=== PATIENT | male | born 1955 | race Caucasian/White ===

== ENCOUNTER 2016-10-26 11:30 | Observation (INO) | payer OTHER ==
[2016-10-23 12:11] LABS: BASOPHILS 0.2 %; BASOPHILS ABSOLUTE 0.02 10/3/uL (0.0-0.16); EOSINOPHILS 1.3 %; EOSINOPHILS ABSOLUTE 0.13 10/3/uL (0.0-0.53); HEMATOCRIT 46.3 % (40.0-51.0); HEMOGLOBIN 15.2 g/dL (13.6-17.8); IMMATURE GRANULOCYTES 0.2 %; IMMATURE GRANULOCYTES ABSOLUTE 0.02 10/3/uL (0.0-0.11); LYMPHOCYTES 22.9 %; LYMPHOCYTES ABSOLUTE 2.23 10/3/uL (0.67-4.30); MEAN CORPUS HGB CONC 32.8 g/dL (32.0-36.0); MEAN CORPUSCULAR HEMOGLOB 29.8 pg (26.0-34.0); MEAN PLATELET VOLUME 11.2 fL (9.2-13.0); MONOCYTES 7.6 %; MONOCYTES ABSOLUTE 0.74 10/3/uL (0.21-1.20); NEUTROPHILS 67.8 %; NEUTROPHILS ABSOLUTE 6.59 10/3/uL (2.02-8.40); PLATELET COUNT 227 10/3/uL (150-400); RBC DISTRIBUTION WIDTH 12.7 % (12.0-16.0); WHITE BLOOD CELLS 9.7 10/3/uL (4.5-10.5)
[2016-10-23 12:12] LABS: MANUAL DIFF NO %; MEAN CORPUSCULAR VOLUME 90.8 fL (80-100)
[2016-10-23 12:28] LABS: ALBUMIN 4.1 G/DL (3.5-5.0); ALKALINE PHOSPHATASE 83 U/L (45-117); BUN (BLOOD UREA NITROGEN) 20 MG/DL (6-23); CALCIUM, SERUM 8.9 MG/DL (8.5-10.4); CHLORIDE, SERUM 102 MMOL/L (96-112); CO2 (CARBON DIOXIDE) 31 MMOL/L (24-34); CREATININE 1.13 MG/DL (0.70-1.30); GFR AFRICAN AMERICAN 81 ML/MIN (>=60); GFR NON AFRICAN AMERICAN 70 ML/MIN (>=60); GLUCOSE, SERUM 169 MG/DL (60-99); POTASSIUM, SERUM 4.3 MMOL/L (3.5-5.3); SGOT(AST) 38 U/L (5-40); SGPT(ALT) 79 U/L (5-65); SODIUM, SERUM 138 MMOL/L (135-148); TOTAL PROTEIN 7.6 G/DL (6.0-8.5)
[2016-10-23 12:29] LABS: A/G RATIO 1.2 (0.7-1.9); GLOBULIN 3.5 G/DL (2.5-4.1)
--- NOTE | ~2016-10-26 | PREOPHP ---
PreOp History and Physical [address] [place]. [address] NAME: JORGE LUIS ARMSTRONG : 55 STATUS : PRE [facility] [place] PAT#: [id number] AGE: 61 ADM/REG DATE : MR#: [id number] REPORT SERV DATE: 10/26/16 DICTATED BY: PHILL MENA III DATE: 10/18/16 REPORT STATUS : Draft TRANSCRIBED BY: MODL DATE: 10/18/16 HISTORY OF PRESENT ILLNESS: This 61-year-old male comes to the operating room for a laparoscopic cholecystectomy, possible laparotomy, for symptomatic cholelithiasis and cholecystitis. The patient complains of a 2-year history of intermittent episodes of abdominal pain. This pain occurs after eating. The pain is associated with nausea. The pain is described as in the right upper quadrant, epigastric areas. It occurs as 4 to 8/10. The patient has gallstones and was felt to have symptomatic cholelithiasis and cholecystitis. He comes to the operating room now for a laparoscopic cholecystectomy, possible laparotomy. MEDICATIONS: Lisinopril, metoprolol, nitroglycerin, simvastatin, and aspirin. PAST MEDICAL HISTORY: Includes coronary artery disease, hyperlipidemia, and hypertension. ALLERGIES: NONE. PAST SURGICAL HISTORY: Includes coronary artery bypass grafting and appendectomy. FAMILY HISTORY: Positive for stroke and heart disease. SOCIAL HISTORY: The patient has no history of current tobacco or alcohol use. REVIEW OF SYSTEMS: The patient complains of back pain, history of kidney stones, chest pain, shortness of breath, and fatigue. PHYSICAL EXAMINATION: GENERAL: Reveals an obese male, in no acute distress. He is alert and oriented x3. VITAL SIGNS: Blood pressure 130/79, pulse 62, temp 98.0. HEENT: Unremarkable. NEURO: Cranial nerves II through XII were normal. LUNGS: Clear. CARDIAC: Normal. ABDOMEN: Soft with mild epigastric tenderness. EXTREMITIES: Normal. LABORATORY DATA: CT scan of the abdomen and pelvis shows gallstones. ASSESSMENT: 1. A 61-year-old male with symptomatic cholelithiasis, cholecystitis, and recurrent episodes of biliary colic. 2. Obesity. 3. Hypertension. 4. Coronary artery disease. 5. History of hyperlipidemia. PLAN: The patient comes to the operating room now for a laparoscopic cholecystectomy, PreOp History and Physical [address] [facility] [place] [address] NAME: JORGE LUIS ARMSTRONG : 55 STATUS : PRE [facility] [place] PAT#: [id number] AGE: 61 ADM/REG DATE : MR#: [id number] REPORT SERV DATE: 10/26/16 DICTATED BY: PHILL MENA III DATE: 10/18/16 REPORT STATUS : Draft TRANSCRIBED BY: MODL DATE: 10/18/16 possible laparotomy. This procedure, the risks, benefits, and alternatives, including but not limited to the risk for bleeding, infection, common bile duct injury, bile leak, retained common bile stone, enterotomy or injury to any abdominal structures, the definite possible need for laparotomy, possible persistence of his symptoms unrelieved by the surgery, possibility of postoperative diarrhea or incisional hernia, and unforeseen complications including deep venous thrombosis, pulmonary embolus, myocardial infarction, stroke, pneumonia, and have been fully and completely explained to patient at length prior to surgery. The fact that this is a major operation with risk for major morbidity and mortality and no guarantee for relief of his symptoms has been explained. The expected length of recovery for open laparoscopic procedures has been explained. The patient's questions have been answered. He clearly understands the risks and agrees to surgery as planned. MARVA/JOSE RAFAEL Phill Mena III, M.D. / [id number]
--- NOTE | ~2016-10-26 | OP ---
Record Of Operation [facility] [address] [place]. [address] NAME: JORGE LUIS ARMSTRONG : 55 STATUS : ADM IN [facility]#: [id number] AGE: 61 ADM/REG DATE : 10/26/16 MR#: [id number] REPORT SERV DATE: 10/26/16 DICTATED BY: PHILL ANAYA III DATE: 10/26/16 REPORT STATUS : Draft TRANSCRIBED BY: MODL DATE: 10/26/16 DATE OF PROCEDURE: 10/26/2016 PREOPERATIVE DIAGNOSES: Symptomatic cholelithiasis and cholecystitis. POSTOPERATIVE DIAGNOSES: Symptomatic cholelithiasis and cholecystitis, severe cholecystitis. PROCEDURE: Laparoscopic cholecystectomy. SURGEON: Dr. Gera Anaya. ANESTHESIA: General with intubation. COMPLICATIONS: None. ESTIMATED BLOOD LOSS: Less than 30 mL. SPECIMENS: Gallbladder. DRAINS: None. LAP AND SPONGE COUNT: Correct x3. BRIEF HISTORY: This 61-year-old male presented with evidence for symptomatic cholelithiasis and cholecystitis. It was felt that laparoscopic cholecystectomy, possible laparotomy, was indicated. This procedure, the risks, benefits, and alternatives, including not limited to the risk for bleeding, infection, common bile duct injury, bile leak, retained common bile duct stone, enterotomy, or injury to any abdominal structure, the definite possible need for laparotomy, possible persistence of his symptoms unrelieved by surgery, possibility of postoperative diarrhea or incisional hernia, and unforeseen complications including deep venous thrombosis, pulmonary embolus, myocardial infarction, stroke, pneumonia, and , were fully and completely explained to the patient's family prior to surgery. The fact that this was a major operation with risk for major morbidity and mortality, no guarantee for relief of his symptoms were explained to them. The expected length of recovery with both open and laparoscopic procedures was explained. The patient had questions, which were answered. He fully understood the risks and agreed to surgery as planned. FINDINGS: The patient's gallbladder ortiz were markedly thickened, inflamed, and there were adhesions between the gallbladder and omentum consistent with cholecystitis. The liver and remainder of the upper abdomen were otherwise unremarkable as far as we could determine through the laparoscope. PROCEDURE IN DETAIL: After being appropriately identified and after discussing the risks of surgery with the patient and his family in the preoperative area, the patient was taken to the operating room and placed in the supine position on the operating room table. General anesthesia was administered. He was intubated without difficulty. The abdomen was prepped Record Of Operation [address] [address] NAME: JORGE LUIS ARMSTRONG : 55 STATUS : ADM IN PAT#: [id number] AGE: 61 ADM/REG DATE : 10/26/16 MR#: [id number] REPORT SERV DATE: 10/26/16 DICTATED BY: PHILL ANAYA III DATE: 10/26/16 REPORT STATUS : Draft TRANSCRIBED BY: JOSE RAFAEL DATE: 10/26/16 and draped sterilely in the usual fashion. After an appropriate "time-out" [facility], a small transverse incision was made below the umbilicus. The skin and fascia on either side was elevated with towel clips. A Veress needle was placed through the incision into the peritoneal cavity. Correct position of the needle in the peritoneal cavity was confirmed by the hanging drop test. The abdominal cavity was then insufflated to about 13 mmHg with carbon dioxide. Correct position of air in the peritoneal cavity was confirmed by palpation. The Veress needle was removed and replaced with 10-mm trocar. The laparoscope was placed through this. The patient was placed in the reverse Trendelenburg position and to his left. A second 10-mm trocar was placed just below the xiphoid process, to the right of the falciform ligament, under direct vision with the laparoscope. Two 5-mm trocars were placed along the right subcostal margin, one in the midaxillary line, the other in the midclavicular line. These were also placed under direct vision with the laparoscope. The upper abdomen was inspected. The gallbladder appeared to be chronically diseased. The gallbladder ortiz were thickened and inflamed consistent chronic cholecystitis. The liver and remainder of the upper abdomen were otherwise unremarkable as far as we could determine through the laparoscope. The appropriate instruments were placed through the trocars. The gallbladder was grasped and the infundibulum of the gallbladder was retracted laterally and inferiorly so as to expose the triangle of Calot. Using careful sharp and blunt dissection, the cystic duct was carefully and meticulously defined proximally and distally. The cystic duct was fairly long. The junction of the cystic duct with the common bile duct was appreciated, but not skeletonized. The cystic artery was similarly defined proximally and distally. The fibrous and fatty tissue between these structures was divided so as to clearly identify the critical angle. Once these structures were clearly defined, the cystic duct was clipped using two clips on the common bile duct side and one on the gallbladder side, all placed as close to the gallbladder as possible, taking care not encroach upon or injure the common bile duct in any way. The cystic duct was then divided between these clips as close to the gallbladder as possible. We elected not to perform a cholangiogram because there was no preoperative or intraoperative evidence for biliary dilatation and because the patient's preoperative liver enzymes were normal and because his biliary anatomy was clearly defined. Again, the structure was not divided or clipped until the critical angle and triangle of Calot had been clearly identified. The cystic artery was then similarly clipped and divided as close to the gallbladder as possible. Using the spatula and the cautery, the gallbladder was carefully dissected from the liver bed. This went very well. Before the gallbladder was completely removed, the gallbladder bed and portal areas were irrigated numerous times with saline. The saline was aspirated dry. This process was repeated several times until hemostasis was meticulously and thoroughly assured in all areas. It was also assured that the clips in the portal areas were in good position and there was no extravasation of bile from any accessory bile duct. Once this was assured, the gallbladder was completely dissected away from the liver and placed in the Endopouch. The liver bed was elevated, irrigated, and inspected for meticulous and thorough hemostasis and for absence of any biliary extravasation and to be certain that the clips were in good position. Once this was assured, the gallbladder and Endopouch were brought out through the infraumbilical incision and placed in the laparoscope through the subxiphoid port. The fascia of the infraumbilical incision was closed with 0 Vicryl suture. The lateral two trocars were removed. These two lower trocar sites were inspected on the underside for hemostasis with the laparoscope. Once this was assured, the subxiphoid trocar was removed under direct vision with the laparoscope to assure hemostasis in this incision. The air was Record Of [place] [id number] [facility] [place]. [address] NAME: JORGE LUIS ARMSTRONG : 55 STATUS : ADM IN PAT#: [id number] AGE: 61 ADM/REG DATE : 10/26/16 MR#: [id number] REPORT SERV DATE: 10/26/16 DICTATED BY: PHILL ANAYA III DATE: 10/26/16 REPORT STATUS : Draft TRANSCRIBED BY: JOSE RAFAEL DATE: 10/26/16 removed from the peritoneal cavity through this incision. The skin incisions were inspected for hemostasis, they were closed with running subcuticular 4-0 Monocryl stitches. They were injected with one-half percent Marcaine. Dressings were applied. Anesthesia was reversed and the patient was taken to the recovery room in stable condition. The patient tolerated the procedure well. His family was informed of the results of surgery. The patient was discharged later when he was stable, comfortable and tolerating liquids and able to void and ambulate. His family was advised that he should remain on a liquid diet today and advance this as tolerated to a regular diet tomorrow. He should keep wounds clean and dry for 48 hours and that he should not drive for 3-4 days after surgery or while using narcotics or Phenergan. They were advised that he should resume his usual medications. He was given a prescription for a narcotic and Phenergan, which he was advised to not take while driving. MARVA/JOSE RAFAEL Phill Anaya III, M.D. / [id number] CC: Susie St III, M.D.
[~2016-10-26 11:30] MED LIST: ASA5GR PO; ASAB PO; CO Q-10100 MG PO; LOP25 PO; LOP50 PO; NIASPAN500 PO; NITROQUICK0.4 MG SL; NITROSPRAY SL; PRIN20 PO; VITC500 PO; ZOCOR20 PO
[2016-10-26 20:31] LABS: HEMATOCRIT 44.7 % (40.0-51.0); HEMOGLOBIN 15.3 g/dL (13.6-17.8)
[2016-10-27 06:26] LABS: HEMATOCRIT 45.3 % (40.0-51.0); MANUAL DIFF YES %; MEAN CORPUS HGB CONC 33.1 g/dL (32.0-36.0); MEAN CORPUSCULAR HEMOGLOB 29.5 pg (26.0-34.0); PLATELET COUNT 194 10/3/uL (150-400); RBC DISTRIBUTION WIDTH 12.7 % (12.0-16.0); RED CELL COUNT 5.09 10/6/uL (4.7-6.1); WHITE BLOOD CELLS 24.8 10/3/uL (4.5-10.5)
[2016-10-27 06:36] LABS: A/G RATIO 1.1 (0.7-1.9); ALBUMIN 3.4 G/DL (3.5-5.0); CALCIUM, SERUM 8.3 MG/DL (8.5-10.4); CHLORIDE, SERUM 96 MMOL/L (96-112); CO2 (CARBON DIOXIDE) 27 MMOL/L (24-34); CREATININE 1.02 MG/DL (0.70-1.30); GFR AFRICAN AMERICAN 92 ML/MIN (>=60); GFR NON AFRICAN AMERICAN 79 ML/MIN (>=60); GLOBULIN 3.1 G/DL (2.5-4.1); POTASSIUM, SERUM 4.8 MMOL/L (3.5-5.3); SGOT(AST) 50 U/L (5-40); SGPT(ALT) 109 U/L (5-65); SODIUM, SERUM 133 MMOL/L (135-148); TOTAL PROTEIN 6.5 G/DL (6.0-8.5)
[2016-10-27 06:39] LABS: ALKALINE PHOSPHATASE 69 U/L (45-117); BUN (BLOOD UREA NITROGEN) 13 MG/DL (6-23); GLUCOSE, SERUM 236 MG/DL (60-99); TOTAL BILIRUBIN 1.6 MG/DL (0-1.2)
[2016-10-27 06:46] LABS: BAND NEUTROPHILS 15 %; BASOPHILS 1 %; BASOPHILS ABSOLUTE (CALC) 0.25 10/3/uL (0.0-0.16); LYMPHOCYTES 3 %; LYMPHOCYTES ABSOLUTE (CALC) 0.74 10/3/uL (0.67-4.30); MONOCYTES 1 %; MONOCYTES ABSOLUTE (CALC) 0.25 10/3/uL (0.21-1.20); NEUTROPHILS ABSOLUTE (CALC) 23.56 10/3/uL (2.02-8.40); PLATELET ESTIMATE ADQ (ADEQUATE); RBC MORPHOLOGY NORM (NORMAL); SEGMENTED NEUTROPHIL (0) 80 %; TOTAL NUCLEATED CELLS 100; TOXIC GRANULATION 1+
== END 2016-10-27 10:13 | disposition home or self-care (01) ==
LOC: SDC 11:30 → 5SO 22:37
PROVIDERS: Surgery
PROC: 0FT44ZZ Resection of Gallbladder, Percutaneous Endoscopic Approach (ICD-10-PCS; principal; 2016-10-26 13:30)
DX: K80.10 Calculus of gallbladder with chronic cholecystitis without obstruction (principal); I10 Essential (primary) hypertension; E66.9 Obesity, unspecified; Z95.1 Presence of aortocoronary bypass graft
CPT/HCPCS: 71020; 80053; 82962; 85014; 85018; 85025; 88304; 93005; A9270-GY; G0378; J0360; J0690; J1170; J2250; J2405; J2550; J2710; J3010